=== PATIENT | male | born 1990 | race Caucasian/White ===

== ENCOUNTER 2021-08-06 05:38 | Emergency (ER) | payer OTHER ==
[~2021-08-06] VITALS: Ht 175.3 cm; Wt 63.5 kg
--- NOTE | 2021-08-06 06:05 | NUR ---
Dr. Larson on bedside for MSE.
--- NOTE | 2021-08-06 06:12 | NUR ---
Patient arrived at the ER with steady gait c/o right arm pain. 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
[2021-08-06] MEDS ORDERED: FENTANYL CITRATE 100 MCG/2 ML AMPUL IM ONE (06:15)
[2021-08-06] MEDS ORDERED: MORPHINE SULFATE 4 MG/1 ML DISP.SYRIN ONE (06:21)
--- NOTE | 2021-08-06 06:21 | NUR ---
Pt refused pain medication, stated right arm pain 5/10 at this time and is tolerable. Dr. davis made aware.
[2021-08-06] MEDS ORDERED: FENTANYL CITRATE 100 MCG/2 ML AMPUL ONE (06:26)
--- NOTE | 2021-08-06 07:13 | NUR ---
SBAR report given to day shift KULDEEP Lowe.
[2021-08-06] MEDS ORDERED: NAPR-1009 PO (07:38)
--- NOTE | 2021-08-06 07:54 | NUR ---
Patient discharged to home in stable condition with brisk steady gait with right arm sling on. Written and verbal after care instructions given. Patient verbalized understanding and compliance of instructions. Stressed follow up with primary doctor and orthopedic doctor or return to ER for worsening s/s. Copy of the x-ray results was given to patient.
== END 2021-08-06 07:54 | disposition home or self-care (01) ==
LOC: ER 05:47 → EDSEX 05:47 → ER 07:54
DX: S50.01XA Contusion of right elbow, initial encounter (principal); W17.89XA Other fall from one level to another, initial encounter; Y93.43 Activity, gymnastics; Y92.89 Other specified places as the place of occurrence of the external cause
CPT/HCPCS: 73080; A4663; J2270; J3010

== ENCOUNTER 2023-05-13 02:01 | Emergency (ER) | payer BC, OTHER ==
[~2023-05-13] VITALS: Ht 175.3 cm; Wt 59.0 kg
[~2023-05-13 02:01] MED LIST: NAPR-1009 PO
[2023-05-13] MEDS ORDERED: AMOXICILLIN-CLAVUL 875-125MG TABLET ONE (03:27)
[2023-05-13] MEDS ORDERED: AMOXICILLIN-CLAVUL 875-125MG TABLET PO ONE (03:30)
[2023-05-13] MEDS ORDERED: AMOX-430 PO (03:54)
[2023-05-13 04:04] VITALS: BP 106/74; TEMP 98; O2SAT 99
== END 2023-05-13 04:05 | disposition home or self-care (01) ==
LOC: ER 02:15
DX: S51.851A Open bite of right forearm, initial encounter (principal); Z79.2 Long term (current) use of antibiotics; Z79.899 Other long term (current) drug therapy; W55.01XA Bitten by cat, initial encounter; Y93.89 Activity, other specified; Y92.89 Other specified places as the place of occurrence of the external cause; Y99.8 Other external cause status
CPT/HCPCS: A4663